=== PATIENT | male | born 1930 ===

== ENCOUNTER → 2020-10-27 17:57 | Outpatient (CLI) | payer MEDICARE, BC ==
[2020-10-27 19:24] LABS: BASOPHILS 0.1 % (0-2); EOSINOPHILS 0.2 % (0-7); HEMATOCRIT 34.3 % (42.0-54.0); HEMOGLOBIN 10.5 g/dL (13.5-17.5); IMMATURE GRANULOCYTES 0.2 % (0-5); LYMPHOCYTE ABS# 2.31 10x3/uL (1.32-3.57); LYMPHOCYTES 23.8 % (15-50); MCH 26.1 pg (26.0-34.0); MCHC 30.6 g/dL (31.0-37.0); MCV 85.3 fL (80.0-100.0); MEAN PLATELET VOLUME 10.6 fL (7.4-10.4); MONOCYTES 6.5 % (2-11); NEUTROPHIL ABS# 6.71 10x3/uL (1.78-5.38); NEUTROPHILS 69.2 % (40-80); RBC 4.02 10x6/uL (4.20-6.10); RDW 16.2 % (11.5-14.5); WBC 9.7 10x3/uL (4.8-10.8)
[2020-10-27 19:30] LABS: PLATELET COUNT 228 10x3/uL (130-400)
[2020-10-27 19:38] LABS: ANION GAP 10.3 mmol/L (8-16); CALCIUM 8.7 mg/dL (8.5-10.1); CARBON DIOXIDE 27.9 mmol/L (21.0-32.0); CREATININE - SERUM 1.2 mg/dL (0.6-1.3); POTASSIUM - SERUM 4.2 mmol/L (3.5-5.1)
== END | disposition home or self-care (01) ==
LOC: D.LABREF 17:57
PROVIDERS: ATTEND Family Medicine
DX: E87.8 Other disorders of electrolyte and fluid balance, not elsewhere classified (principal)